=== PATIENT | male | born 1965 | race Caucasian/White ===

== ENCOUNTER → 2016-11-30 | Outpatient (CLI) | payer BC ==
[~2016-11-30] MED LIST: INSPMPNVLG; INSUINJ4 SQ; OLME1TAB11 PO
[2016-11-30 11:18] LABS: BLOOD UREA NITROGEN 19 mg/dl (7-18); BUN/CREATININE RATIO 15.4 (10-20); CALCIUM 8.4 mg/dl (8.5-10.1); CARBON DIOXIDE 24 mmol/L (21-32); CHLORIDE 108 mmol/L (98-107); GLUCOSE 145 mg/dl (70-99); SODIUM 140 mmol/L (136-145)
[2016-11-30 11:21] LABS: CHOLESTEROL 180 mg/dl (0-200); CHOLESTEROL/HDL RATIO 1.6; HDL CHOLESTEROL 110 mg/dl; LDL CHOLESTEROL CALCULATED 62 mg/dl; TRIGLYCERIDES 38 mg/dl (0-150); VERY LOW DENSITY LIPOPROT CALC 8 mg/dl
[2016-11-30 11:28] LABS: RATIO 3.6 mcg/mg (0-30.0)
[2016-11-30 11:34] LABS: ESTIMATED AVERAGE GLUCOSE 137 mg/dl; HA1C FLAG Normal (Normal)
== END | disposition home or self-care (01) ==
LOC: C.LAB1850 09:42
PROVIDERS: ATTEND Internal Medicine
DX: E10.65 Type 1 diabetes mellitus with hyperglycemia (principal); Z00.00 Encounter for general adult medical examination without abnormal findings; Z11.59 Encounter for screening for other viral diseases; R94.6 Abnormal results of thyroid function studies

== ENCOUNTER → 2017-04-08 | Outpatient (CLI) | payer OTHER | END | disposition home or self-care (01) | LOC: C.LAB1850 07:50 | PROVIDERS: ATTEND Nurse Practitioner Family | DX: E10.65 Type 1 diabetes mellitus with hyperglycemia (principal) ==

== ENCOUNTER → 2017-12-20 | Outpatient (CLI) | payer BC ==
[~2017-12-20] MED LIST changes: +BNC/20 PO; -OLME1TAB11 PO
[2017-12-20 14:03] LABS: HEMOGLOBIN A1C 6.6 % (4.5-5.6)
== END | disposition home or self-care (01) ==
LOC: C.LAB1850 12:36
PROVIDERS: ATTEND Nurse Practitioner Family
DX: E10.65 Type 1 diabetes mellitus with hyperglycemia (principal)

== ENCOUNTER 2018-01-30 17:11 | Emergency (ER) | payer BC ==
[~2018-01-30] VITALS: Ht 190.5 cm; Wt 115.9 kg
[2018-01-30 17:21] VITALS: Ht 190.5 cm; Wt 115.9 kg
[2018-01-30] MEDS ORDERED: LIDOCAINE HCL 1% 20 ML VIAL ONE (17:32)
[2018-01-30] MEDS ORDERED: NVLGI/PEN SC (17:53)
[2018-01-30] MEDS ORDERED: INSDGIPEN SC (17:53)
[2018-01-30 18:37] VITALS: BP 159/89; PULSE 63; TEMP 36.5; O2SAT 94
--- NOTE | 2018-01-30 19:28 | EMERGENCY ROOM VISIT NOTE ---
History First contact with patient: 17:24 Chief Complaint: LACERATION/CUT (NON-SUTURE) Stated Complaint: FOREHEAD LACERATION History of Present Illness The patient is a 53 year old male who presents to the Emergency Room with complaints of a laceration to his left forehead. The patient reports that he was trying to run into his garage to get out of the rain when he accidentally ran into a hanging fluorescent lighting fixture. The patient denies any loss of consciousness, and rates his discomfort a 3 out of 10. Tetanus immunization is up-to-date. The patient denies any significant bleeding from the wound. He denies any significant headache, neck pain, nausea or other neurologic symptoms. Review of Systems 6 system review was performed and was negative except for pertinent positives and negatives as indicated in history of present illness Past Medical/Surgical History Medical Problems: (1) Diab Kimberly Wo Compl, Type I [Juvenile Type], Not Uncntrld (2) Diabetes type 1, controlled (3) Sprain Of Ankle Nos Family History FH: cancer Hypertension Kidney stones Social History Smoking Status: Never Smoker Alcohol Use: occasionally Drug Use: none Marital Status: Housing Status: lives with family Occupation Status: employed Current/Historical Medications Scheduled Insulin Aspart (Novolog Flexpen), 1 DOSE SC ACHS Insulin Glargine (Lantus Solostar), 24 UNITS SC DAILY Olmesartan Medoxomil (Benicar), 20 MG PO DAILY Physical Exam Vital Signs Date Time Temp Pulse Resp B/P (MAP) Pulse Ox O2 Delivery O2 Flow Rate FiO2 01/30/18 18:37 36.5 63 18 159/89 94 01/30/18 17:21 36.5 63 18 159/89 94 Room Air Physical Exam CONSTITUTIONAL: Healthy and well nourished. Alert and oriented X 3 with positive affect. GCS 15. HEENT: Examination of the left forehead shows a V-shaped 2 cm laceration with mild bleeding. No hematoma formation or skin tissue loss. NECK: Full active range of motion without discomfort. INTEGUMENTARY: No rash or other significant dermatologic conditions noted. NEUROLOGIC: No focal neurologic deficits noted. No ataxia with ambulation. Negative pronator drift. Medical Decision & Procedures Procedure Laceration repair was performed under local anesthesia after receiving verbal consent from the patient. Using buffered 1% lidocaine without epinephrine, good local anesthesia was administered. Peripheral tissue was cleansed with iodine, then the wound was irrigated with normal saline. Exploration of the wound does not show any underlying debris. The wound was then approximated using 6-0 nylon simple interrupted sutures. Bacitracin was applied. ED Course Patient history and physical exam were performed. Nurse's notes were reviewed. Vital signs were reviewed and were normal. Laceration repair was performed under local anesthesia. The patient was provided additional verbal and written wound care instructions. Ice for swelling. Bupropion or Tylenol as needed for pain. Suture removal in 5-7 days, or seek reevaluation sooner for any signs of wound infection. The patient was also instructed to return to the emergency department for any progressively worsening headache, vomiting, unusual drowsiness, coordination problems or other concerning symptoms related to his head injury. The patient was happy with plan of care, voiced understanding of all discharge instructions, and denied any pain at the time of discharge. Medical Decision Head Trauma GCS Score: 15 Blood Pressure Screening Patient's blood pressure: Normal blood pressure Impression Primary Impression: Forehead laceration Departure Information Dispostion Home / Self-Care Forms HOME CARE DOCUMENTATION FORM, IMPORTANT VISIT INFORMATION Patient Instructions [facility] Additional Instructions Keep wound clean and dry. Do not allow any crusting or dried blood to accumulate on sutures. If this occurs, use a 1:1 solution of hydrogen peroxide/ water on a Q-tip to clean the wound. Use an antibiotic ointment for 3 days, then let wound dry. Suture removal in 5-7 days. Return sooner for any signs of infection (increasing redness, swelling, drainage). Ice for swelling. Ibuprofen 600 mg and/or Tylenol 1000 mg every 6 hrs as needed for pain. Problem Qualifiers Primary Impression: Forehead laceration Encounter type: initial encounter Qualified Codes: S01.81XA - Laceration without foreign body of other part of head, initial encounter
== END 2018-01-30 18:38 | disposition home or self-care (01) ==
LOC: C.EDB 17:12 → C.EDD 18:38
DX: S01.81XA Laceration without foreign body of other part of head, initial encounter (principal); W22.8XXA Striking against or struck by other objects, initial encounter; Y92.094 Garage of other non-institutional residence as the place of occurrence of the external cause; E11.9 Type 2 diabetes mellitus without complications; Z79.4 Long term (current) use of insulin; Z82.49 Family history of ischemic heart disease and other diseases of the circulatory system; Z80.9 Family history of malignant neoplasm, unspecified